=== PATIENT | female | born 1930 | race Caucasian/White ===

== ENCOUNTER 2016-07-11 12:51 | Outpatient (CLI) | payer MEDICARE, OTHER | END 2016-07-11 12:52 | disposition home or self-care (01) | DX: I48.91 Unspecified atrial fibrillation (principal); Z79.01 Long term (current) use of anticoagulants ==

== ENCOUNTER 2016-08-07 12:33 | Outpatient (CLI) | payer MEDICARE, OTHER | END 2016-08-07 12:34 | disposition home or self-care (01) | DX: I48.91 Unspecified atrial fibrillation (principal); Z79.01 Long term (current) use of anticoagulants ==

== ENCOUNTER 2016-09-09 11:22 | Outpatient (CLI) | payer MEDICARE, OTHER | END 2016-09-09 11:23 | disposition home or self-care (01) | DX: I48.91 Unspecified atrial fibrillation (principal); Z79.01 Long term (current) use of anticoagulants ==

== ENCOUNTER 2016-11-03 13:51 | Outpatient (CLI) | payer MEDICARE, OTHER | END 2016-11-03 13:52 | disposition home or self-care (01) | DX: I48.91 Unspecified atrial fibrillation (principal); Z79.01 Long term (current) use of anticoagulants ==

== ENCOUNTER 2017-01-13 11:16 | Outpatient (CLI) | payer MEDICARE, OTHER | END 2017-01-13 11:17 | disposition home or self-care (01) | LOC: LAB.F 11:16 | PROVIDERS: ATTEND Registered Nurse | DX: I48.91 Unspecified atrial fibrillation (principal) | CPT/HCPCS: 85610 ==

== ENCOUNTER 2017-02-25 10:01 | Outpatient (CLI) | payer MEDICARE, OTHER | END 2017-02-25 10:02 | disposition home or self-care (01) | LOC: LAB.F 10:01 | PROVIDERS: ATTEND Registered Nurse | DX: I48.91 Unspecified atrial fibrillation (principal); Z79.01 Long term (current) use of anticoagulants | CPT/HCPCS: 85610 ==

== ENCOUNTER 2017-04-09 15:43 | Outpatient (CLI) | payer MEDICARE, OTHER | END 2017-04-09 15:44 | disposition home or self-care (01) | LOC: LAB.R 15:43 | PROVIDERS: ATTEND Registered Nurse | DX: I48.91 Unspecified atrial fibrillation (principal); Z79.01 Long term (current) use of anticoagulants | CPT/HCPCS: 85610 ==

== ENCOUNTER 2017-06-02 11:01 | Outpatient (CLI) | payer MEDICARE, OTHER | END 2017-06-02 11:02 | disposition home or self-care (01) | LOC: LAB.F 11:01 | PROVIDERS: ATTEND Registered Nurse | DX: I48.91 Unspecified atrial fibrillation (principal); Z79.01 Long term (current) use of anticoagulants | CPT/HCPCS: 85610 ==

== ENCOUNTER 2017-06-16 15:16 | Outpatient (CLI) | payer MEDICARE, OTHER | END 2017-06-16 15:17 | disposition home or self-care (01) | LOC: LAB.F 15:16 | PROVIDERS: ATTEND Registered Nurse | DX: I48.91 Unspecified atrial fibrillation (principal); Z79.01 Long term (current) use of anticoagulants | CPT/HCPCS: 85610 ==

== ENCOUNTER 2017-07-17 13:55 | Outpatient (CLI) | payer MEDICARE, OTHER | END 2017-07-17 13:56 | disposition home or self-care (01) | LOC: DI 13:55 | PROVIDERS: ATTEND Internal Medicine Cardiovascular Disease | DX: R06.00 Dyspnea, unspecified (principal); I08.3 Combined rheumatic disorders of mitral, aortic and tricuspid valves | CPT/HCPCS: 93306 ==

== ENCOUNTER 2017-07-21 08:00 | Outpatient (CLI) | payer MEDICARE, OTHER | END 2017-07-21 08:01 | LOC: LAB.F 08:00 | PROVIDERS: ATTEND Registered Nurse | DX: I48.91 Unspecified atrial fibrillation (principal); Z79.01 Long term (current) use of anticoagulants | CPT/HCPCS: 85610 ==

== ENCOUNTER 2017-07-30 13:10 | Outpatient (CLI) | payer MEDICARE, OTHER | END 2017-07-30 13:11 | disposition home or self-care (01) | LOC: LAB.F 13:10 | PROVIDERS: ATTEND Registered Nurse | DX: I48.91 Unspecified atrial fibrillation (principal); Z79.01 Long term (current) use of anticoagulants | CPT/HCPCS: 85610 ==

== ENCOUNTER 2017-08-18 15:29 | Outpatient (CLI) | payer MEDICARE, OTHER | END 2017-08-18 15:30 | disposition home or self-care (01) | LOC: LAB.F 15:29 | PROVIDERS: ATTEND Registered Nurse | DX: I48.91 Unspecified atrial fibrillation (principal); Z79.01 Long term (current) use of anticoagulants | CPT/HCPCS: 85610 ==

== ENCOUNTER 2017-09-10 08:39 | Outpatient (CLI) | payer MEDICARE, OTHER ==
[2017-09-10] MEDS ORDERED: REGADENOSON 0.4 MG/5 ML SYRINGE IVP ONE (11:22)
[2017-09-10 12:48] VITALS: BP 124/72
--- NOTE | 2017-09-10 15:03 | CARDIAC PROCEDURE NOTE ---
DATE OF SERVICE: 09/10/2017 Physician: BHAVNA Awan PRIMARY CARE PHYSICIAN: Carl Austin MD MANUFACTURING TECHNOLOGIST: Ralph Guzman MD PROCEDURE: Pharmacologic cardiac stress test. PROCEDURE SYMPTOMS: Dyspnea on exertion and abnormal echocardiogram. CARDIAC RISK FACTORS: Include age. PREVIOUS CARDIAC PROCEDURES: Distant history of treadmill test. CLINICAL HISTORY: An 86-year-old female without known coronary artery disease. She has a pacemaker and permanent atrial fibrillation. There were no medications held. INITIAL RESTING VITAL SIGNS: BP 124/72, heart rate 105, height 66 inches, weight 140 pounds. PROCEDURE AND FINDINGS: Patient identity and date verified. Consent signed. Pharmaceutical check. Pharmacologic stress testing was performed with Lexiscan at a dose of 0.4 mg over 10 seconds. The heart rate decreased to 83 beats per minute from the infusion. Blood pressure response was normal. The patient developed no infusion related symptoms. However, once the test was completed, she reported some mild chest tightness. The resting ECG demonstrated ventricular paced rhythm. There was no noted ectopy. FINAL IMPRESSIONS 1. Nondiagnostic electrocardiogram for ischemia in the setting of vasodilator stress, due to ventricular pacing. 2. Nondiagnostic stress test for angina. 3. No ectopy. 4. Await myocardial perfusion report. TD: 09/10/2017 15:03
--- NOTE | 2017-09-10 16:56 | Nuclear Medicine Report ---
EXAM: SINGLE-ISOTOPE PHARMACOLOGICAL STRESS TEST WITH REGADENOSON. SINGLE-ISOTOPE AND ONE-DAY REST/STRESS M YOCARDIAL PERFUSION SCANS WITH TOMOGRAPHIC IMAGING, QUANTITATIVE ANALYSIS, WALL MOTION ANALYSIS AND C ALCULATION OF EJECTION FRACTION. EXAM DATE: 09/10/2017 12:36 PM. CLINICAL HISTORY: ABN ECHO. COMPARISON: None. TECHNIQUE: After the intravenous administration of 9.4 mCi of Tc-99m sestamibi, a rest myocardial perfusion scan was done with tomography. Motion correction was applied when appropriate. After an appropriate delay, pharmacological stress was performed with the infusion of 0.4 mg regadeno son per protocol. According to protocol, 39.2 mCi of Tc-99m sestamibi was injected for stress myocard ial perfusion scan. Motion correction was applied when appropriate. Gated tomographic images were obtained for wall motion analysis and computation of left ventricular e jection fraction. FINDINGS: Perfusion images: Left ventricular chamber size is normal at rest and unchanged at stress. No convincing fixed perfusion deficits. No convincing reversible perfusion deficits. Gated images: No convincing focal wall motion abnormality. The left ventricular ejection fraction is estimated at 61% (normal > 50%). IMPRESSION: 1. No convincing reversible perfusion deficits to indicate stress-induced ischemia. 2. No convincing fixed perfusion deficits. 3. Left ventricular ejection fraction of 61% (normal > 50%). 4. No focal wall motion abnormalities. [facility] Referring Provider Line: [phone] SITE ID: [id number]
== END 2017-09-10 08:40 | disposition home or self-care (01) ==
LOC: DI 08:39
PROVIDERS: ATTEND Internal Medicine Cardiovascular Disease
DX: R93.1 Abnormal findings on diagnostic imaging of heart and coronary circulation (principal); R06.00 Dyspnea, unspecified; I48.91 Unspecified atrial fibrillation; Z79.01 Long term (current) use of anticoagulants
CPT/HCPCS: 78452; 85610; 93017; A9500

== ENCOUNTER 2017-09-10 13:07 | Outpatient (CLI) | payer MEDICARE, OTHER | END 2017-09-10 13:08 | disposition home or self-care (01) | LOC: LAB.F 13:07 | PROVIDERS: ATTEND Registered Nurse | DX: I48.91 Unspecified atrial fibrillation (principal); Z79.01 Long term (current) use of anticoagulants | CPT/HCPCS: 85610 ==

== ENCOUNTER 2017-10-16 10:30 | Outpatient (CLI) | payer MEDICARE, OTHER | END 2017-10-16 10:31 | disposition home or self-care (01) | LOC: LAB.F 10:30 | PROVIDERS: ATTEND Registered Nurse | DX: I48.91 Unspecified atrial fibrillation (principal); Z79.01 Long term (current) use of anticoagulants | CPT/HCPCS: 85610 ==

== ENCOUNTER 2017-11-23 13:02 | Outpatient (CLI) | payer MEDICARE, OTHER | END 2017-11-23 13:03 | disposition home or self-care (01) | LOC: LAB.F 13:02 | PROVIDERS: ATTEND Family Medicine | DX: I48.91 Unspecified atrial fibrillation (principal); Z79.01 Long term (current) use of anticoagulants | CPT/HCPCS: 85610 ==

== ENCOUNTER 2017-11-24 08:00 | Outpatient (CLI) | payer MEDICARE, OTHER ==
[2017-11-25 11:03] LABS: BASOPHILS # (AUTO) 0.1 10^3/uL (0.0-0.1); BASOPHILS % (AUTO) 0.8 %; EOSINOPHILS # (AUTO) 0.2 10^3/uL (0.0-0.7); EOSINOPHILS % (AUTO) 3.2 %; LYMPHOCYTES # (AUTO) 1.7 10^3/uL (1.5-3.5); MEAN CORPUSCULAR HEMOGLOBIN 31.2 pg (27.0-31.0); MEAN CORPUSCULAR HGB CONC 32.5 g/dL (32.0-36.0); MEAN CORPUSCULAR VOLUME 96.2 fL (81.0-99.0); MONOCYTES # (AUTO) 0.7 10^3/uL (0.0-1.0); MONOCYTES % (AUTO) 10.3 %; NEUTROPHILS # (AUTO) 3.8 10^3/uL (1.5-6.6); NEUTROPHILS % (AUTO) 59.7 %; PLT - PLATELET COUNT 195 10^3/uL (130-450); RED BLOOD COUNT 4.47 10^6/uL (4.20-5.40); RED CELL DISTRIBUTION WIDTH 14.5 % (12.0-15.0); WHITE BLOOD COUNT 6.4 x10^3/uL (4.8-10.8)
[2017-11-25 11:47] LABS: BUN - BLOOD UREA NITROGEN 18 mg/dL (6-20); CARBON DIOXIDE - CO2 27 mmol/L (21-32); CHLORIDE 102 mmol/L (101-111); CREATININE 0.7 mg/dL (0.4-1.0); DIGOXIN 1.2 ng/mL; GFR - MDRD 79 (>89); GLUCOSE 78 mg/dL (70-100); INR 4.3 (0.8-1.2); PT - PROTHROMBIN TIME 45.5 secs (9.9-12.6); SODIUM 136 mmol/L (135-145)
== END 2017-11-24 08:01 | disposition home or self-care (01) ==
LOC: LAB.F 08:00
PROVIDERS: ATTEND Registered Nurse
DX: Z79.01 Long term (current) use of anticoagulants (principal); E78.4 Other hyperlipidemia; I50.32 Chronic diastolic (congestive) heart failure; I48.91 Unspecified atrial fibrillation; M81.0 Age-related osteoporosis without current pathological fracture
CPT/HCPCS: 36415; 80048; 80162; 82306; 85025; 85610

== ENCOUNTER 2017-12-01 10:59 | Outpatient (CLI) | payer MEDICARE, OTHER | END 2017-12-01 11:00 | disposition home or self-care (01) | LOC: LAB.F 10:59 | PROVIDERS: ATTEND Registered Nurse | DX: I48.91 Unspecified atrial fibrillation (principal); Z79.01 Long term (current) use of anticoagulants | CPT/HCPCS: 85610 ==

== ENCOUNTER 2017-12-10 12:56 | Outpatient (CLI) | payer MEDICARE, OTHER | END 2017-12-10 12:57 | disposition home or self-care (01) | LOC: LAB.F 12:56 | PROVIDERS: ATTEND Registered Nurse | DX: I48.91 Unspecified atrial fibrillation (principal); Z79.01 Long term (current) use of anticoagulants | CPT/HCPCS: 85610 ==

== ENCOUNTER 2017-12-22 10:55 | Outpatient (CLI) | payer MEDICARE, OTHER | END 2017-12-22 10:56 | disposition home or self-care (01) | LOC: LAB.F 10:55 | PROVIDERS: ATTEND Registered Nurse | DX: I48.91 Unspecified atrial fibrillation (principal); Z79.01 Long term (current) use of anticoagulants | CPT/HCPCS: 85610 ==

== ENCOUNTER 2018-01-04 08:15 | Outpatient (CLI) | payer MEDICARE, OTHER | END 2018-01-04 08:16 | disposition home or self-care (01) | LOC: LAB.F 08:15 | PROVIDERS: ATTEND Registered Nurse | DX: I48.91 Unspecified atrial fibrillation (principal); Z79.01 Long term (current) use of anticoagulants | CPT/HCPCS: 85610 ==

== ENCOUNTER 2018-02-01 11:22 | Outpatient (CLI) | payer MEDICARE, OTHER | END 2018-02-01 11:23 | disposition home or self-care (01) | LOC: LAB.F 11:22 | PROVIDERS: ATTEND Registered Nurse | DX: I48.91 Unspecified atrial fibrillation (principal); Z79.01 Long term (current) use of anticoagulants | CPT/HCPCS: 85610 ==

== ENCOUNTER 2018-02-22 10:17 | Outpatient (CLI) | payer MEDICARE, OTHER | END 2018-02-22 10:18 | disposition home or self-care (01) | LOC: LAB.F 10:17 | PROVIDERS: ATTEND Registered Nurse | DX: I48.91 Unspecified atrial fibrillation (principal); Z79.01 Long term (current) use of anticoagulants | CPT/HCPCS: 85610 ==

== ENCOUNTER 2018-03-23 11:27 | Outpatient (CLI) | payer MEDICARE, OTHER | END 2018-03-23 11:28 | disposition home or self-care (01) | LOC: LAB.F 11:27 | PROVIDERS: ATTEND Registered Nurse | DX: I48.91 Unspecified atrial fibrillation (principal); Z79.01 Long term (current) use of anticoagulants | CPT/HCPCS: 85610 ==

== ENCOUNTER 2018-04-20 11:07 | Outpatient (CLI) | payer MEDICARE, OTHER | END 2018-04-20 11:08 | disposition home or self-care (01) | LOC: LAB.F 11:07 | PROVIDERS: ATTEND Registered Nurse | DX: I48.91 Unspecified atrial fibrillation (principal); Z79.01 Long term (current) use of anticoagulants | CPT/HCPCS: 85610 ==

== ENCOUNTER 2018-05-18 11:19 | Outpatient (CLI) | payer MEDICARE, OTHER | END 2018-05-18 11:20 | disposition home or self-care (01) | LOC: LAB.F 11:19 | PROVIDERS: ATTEND Registered Nurse | DX: I48.91 Unspecified atrial fibrillation (principal); Z79.01 Long term (current) use of anticoagulants | CPT/HCPCS: 85610 ==

== ENCOUNTER 2018-06-17 13:04 | Outpatient (CLI) | payer MEDICARE, OTHER | END 2018-06-17 13:05 | disposition home or self-care (01) | LOC: LAB.F 13:04 | PROVIDERS: ATTEND Registered Nurse | DX: I48.91 Unspecified atrial fibrillation (principal); Z79.01 Long term (current) use of anticoagulants | CPT/HCPCS: 85610 ==

== ENCOUNTER 2018-07-23 11:45 | Outpatient (CLI) | payer MEDICARE, OTHER | END 2018-07-23 11:46 | disposition home or self-care (01) | LOC: LAB.F 11:45 | PROVIDERS: ATTEND Family Medicine | DX: I48.91 Unspecified atrial fibrillation (principal); Z79.01 Long term (current) use of anticoagulants | CPT/HCPCS: 85610 ==

== ENCOUNTER 2018-09-16 10:01 | Outpatient (CLI) | payer MEDICARE, OTHER | END 2018-09-16 10:02 | disposition home or self-care (01) | LOC: LAB.F 10:01 | PROVIDERS: ATTEND Registered Nurse | DX: I48.91 Unspecified atrial fibrillation (principal); Z79.01 Long term (current) use of anticoagulants | CPT/HCPCS: 85610 ==

== ENCOUNTER 2018-09-24 14:12 | Outpatient (CLI) | payer MEDICARE, OTHER ==
--- NOTE | 2018-09-27 13:20 | DEXA Report ---
Reason: OSTEOPOROSIS Procedure Date: 09/24/2018 Accession Number: [id number] / [id number] Procedure: DEX - Dexa Spine and/or Hip CPT Code: FULL RESULT: EXAM: Dexa Spine and/or Hip DATE: 09/24/2018 2:45 PM CLINICAL HISTORY: OSTEOPOROSIS TECHNIQUE: Dual energy x-ray absorptiometry (DXA) was performed on a Modria System. Regions measured are the AP Spine, femoral neck, and if needed forearm. COMPARISON: None. In accordance with the International Society for Clinical Densitometry (ISCD) guidelines, data from previous exams may be reanalyzed using current recommendations and techniques. This is done to allow a more accurate basis for comparison with the current study. FINDINGS: The data for the lumbar spine is as follows: BMD (g/cm/cm) T-SCORE Z-SCORE REGION L1 0.849 -2.3 -0.3 L2 0.886 -2.6 -0.6 L3 0.931 -2.2 -0.2 L4 0.892 -2.6 -0.5 TOTAL 0.889 -2.4 -0.4 NOTE: All evaluable vertebrae are used for classification The data for the hip is as follows: BMD (g/cm/cm) T-SCORE Z-SCORE REGION Neck 0.675 -2.6 0.0 TOTAL 0.695 -2.5 0.0 NOTE: The femoral neck or total proximal femur, whichever is lowest, is used for classification. IMPRESSION: THE WHO CLASSIFICATION BASED ON THE INTERNATIONAL REFERENCE STANDARD IS OSTEOPOROSIS. THE FRACTURE RISK IS HIGH. RECOMMENDATION: Patients with diagnosis of osteoporosis or osteopenia should have regular bone mineral density assessment. For those eligible for Medicare, routine testing is allowed once every 2 years. Testing frequency can be increased for patients who have rapidly progressing disease or for those who are receiving medical therapy to restore bone mass. COMMENT: World Health Organization (WHO) definitions for osteoporosis and osteopenia: NORMAL BMD: T-score at -1.0 or higher, fracture risk is low OSTEOPENIA BMD: T-score between -1.0 and -2.5, fracture risk is increased. OSTEOPOROSIS BMD: T-score at -2.5 or lower, fracture risk is high. National Osteoporosis Foundation recommends: 1. Obtain adequate dietary calcium (at least 1200 mg per day) and vitamin D (400-800 international units per day). 2. Participate, as appropriate, in regular weightbearing and muscle-strengthening exercise. 3. Avoid tobacco use and reduce alcohol and caffeine intake. 4. For more detailed information see the website at www.NOF.org.
== END 2018-09-24 14:13 | disposition home or self-care (01) ==
LOC: DI 14:12
PROVIDERS: ATTEND Family Medicine
DX: M81.0 Age-related osteoporosis without current pathological fracture (principal)
CPT/HCPCS: 77080

== ENCOUNTER 2018-10-12 08:00 | Outpatient (CLI) | payer MEDICARE, OTHER | END 2018-10-12 23:59 | disposition home or self-care (01) | LOC: LAB.F 08:00 | PROVIDERS: ATTEND Registered Nurse | DX: I48.91 Unspecified atrial fibrillation (principal); Z79.01 Long term (current) use of anticoagulants | CPT/HCPCS: 85610 ==

== ENCOUNTER 2018-11-19 14:13 | Outpatient (CLI) | payer MEDICARE, OTHER | END 2018-11-19 14:14 | disposition home or self-care (01) | LOC: LAB.F 14:13 | PROVIDERS: ATTEND Registered Nurse | DX: I48.91 Unspecified atrial fibrillation (principal); Z79.01 Long term (current) use of anticoagulants | CPT/HCPCS: 85610 ==

== ENCOUNTER 2018-12-22 12:20 | Outpatient (CLI) | payer MEDICARE, OTHER | END 2018-12-22 12:21 | disposition home or self-care (01) | LOC: LAB.S 12:20 | PROVIDERS: ATTEND Registered Nurse | DX: I48.91 Unspecified atrial fibrillation (principal); Z79.01 Long term (current) use of anticoagulants | CPT/HCPCS: 85610 ==

== ENCOUNTER 2019-01-17 | Outpatient (CLI) | payer MEDICARE, OTHER | END 2019-01-17 13:04 | disposition home or self-care (01) ==

== ENCOUNTER 2019-02-07 09:33 | Emergency (ER) | payer MEDICARE, OTHER ==
[2019-02-07 09:49] VITALS: BP 140/80
--- NOTE | 2019-02-07 09:49 | ED Physician Documentation ---
PD HPI OPHTHO - Stated complaint Stated Complaint: VISION CHG RT EYE - Chief complaint Chief Complaint: Heent - History obtained from History obtained from: Patient - History of Present Illness Timing - onset: How many days ago (2) Timing - duration: Days (2) Timing - details: Gradual onset, Still present (increased blurring vision for 2- 3 days, with last night having some medial canthal discharge. No loss of vision per se. Not light sensitive.) Location: Right. No: Both Quality / character: Aching. No: Burning Associated symptoms: Discharge (mild medial canthus since last night.). No: Redness, FB sensation, Photophobia, Double vision Contributing factors: No: Exposed to conjunctivitis, FB, Wears contacts Similar symptoms before: Has not had sx before Recently seen: Not recently seen Review of Systems Constitutional: denies: Fever, Chills, Myalgias Eyes: reports: Decreased vision, Discharge (mild since last night, medial r ight.). denies: Loss of vision, Photophobia Ears: denies: Ear pain, Foreign body Nose: denies: Rhinorrhea / runny nose, Congestion, Sinus pressure / pain Throat: denies: Sore throat Cardiac: denies: Chest pain / pressure Respiratory: denies: Cough GI: denies: Abdominal Pain, Nausea, Vomiting, Diarrhea Skin: denies: Rash, Lesions Neurologic: denies: Generalized weakness, Focal weakness, Numbness PD PAST MEDICAL HISTORY - Past Medical History Cardiovascular: Deep vein thrombosis, Atrial fibrillation Respiratory: Sleep apnea, CPAP use HEENT: Glaucoma - Past Surgical History Cardiovascular: Pacemaker, Other HEENT: Cataracts, Tonsil/Adenoidectomy - Present Medications Home Medications: Ambulatory Orders Medication Instructions Recorded Confirmed Digoxin 250 mcg PO DAILY 02/07/19 02/07/19 Furosemide [Lasix] 20 mg PO DAILY 02/07/19 02/07/19 Multivitamin [Multivitamins] 1 tab PO DAILY 02/07/19 02/07/19 Spironolactone 25 mg PO DAILY 02/07/19 02/07/19 Warfarin [Coumadin] 3 mg PO 02/07/19 Zolpidem Tartrate [Ambien] 10 mg PO 02/07/19 - Allergies Allergies/Adverse Reactions: Allergies Allergy/AdvReac Type Severity Reaction Status Date / Time cefazolin [From [facility]] Allergy Rash Verified 02/07/19 09:42 PD ED PE NORMAL - Vitals Vital signs reviewed: Yes - General General: Alert and oriented X 3, No acute distress, Well developed/nourished - HEENT HEENT: PERRL (not light sensitive. 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 No: Fluorescein uptake Results - Vitals Vitals: Vital Signs - 24 hr 02/07/19 09:40 Temperature 36.5 C Heart Rate 92 Respiratory 18 Rate Blood Pressure 140/80 H O2 Saturation 99 Oxygen O2 Source Room air PD MEDICAL DECISION MAKING - ED course Complexity details: considered differential, d/w speech correction consultant (Dr. Ruggiero's office and relayed information. He will see patient at 3 pm today. ) Departure - Departure Disposition: 01 Home, Self Care Clinical Impression: Blurred vision, right eye Conjunctivitis Qualifiers: Conjunctivitis type: acute Acute conjunctivitis type: unspecified Laterality: right Qualified Code(s): H10.31 - Unspecified acute conjunctivitis, right eye Condition: Stable Record reviewed to determine appropriate education?: Yes Follow-Up: Carl Austin MD [Primary Care Provider] - Raad Ruggiero MD [Provider Admit Priv/Credential] - Comments: Use the erythromycin 3 or 4 times a day for now. Follow-up with Dr. Ruggiero today in his office at 3:00 as planned. Return or go to his office sooner if worsening symptoms. Discharge Date/Time: 02/07/19 11:25
[2019-02-07] MEDS ORDERED: ERYTHROMYCIN OPHTH OINT 1 GM TUBE RIGHTEYE STA (10:54)
== END 2019-02-07 11:25 | disposition home or self-care (01) ==
LOC: ED 09:33
DX: H10.31 Unspecified acute conjunctivitis, right eye (principal); H53.8 Other visual disturbances; Z86.718 Personal history of other venous thrombosis and embolism; Z79.01 Long term (current) use of anticoagulants
CPT/HCPCS: 99203; 99282; 99284; G0463; J3490; 99212

== ENCOUNTER 2019-02-07 13:02 | Outpatient (CLI) | payer MEDICARE, OTHER ==
--- NOTE | 2019-02-07 17:08 | SLEEP CARE CONSULTATION ---
Information from patient questionnaire entered by Fany Camejo. I have reviewed and concur with the information entered by Fany Camejo. This document represents the service I personally performed and the decisions made by me, Russell Du MD, [facility]. History of Present Illness Reason for Visit: New patient Chief Complaint: reports: Snoring, Observed pauses in breathing Duration of Symptoms: MANY YEARS Usual bedtime: 11:30PM Time it takes to fall asleep: 10 MINUTES Snores at night: Yes (WHEN NOT USING CPAP) Observed to quit breathing while asleep: No Sleeps alone due to snoring: No Number of times waking at night: 0 Recalls having dreams: Yes (SOMETIMES) Usually gets out of bed at: 7:30-8:00 AM Feels refreshed in the morning: Yes Morning headache: No Sleepy or fatigued during the day: Yes Ever fallen asleep while driving: No Takes day naps: No Dreams during day naps: No Prior sleep studies: Yes (20 YEARS AGO, [place], [place]) Additional HPI information: I had the pleasure of seeing Ms. Kumar today regarding obstructive sleep apnea- hypopnea. As you know, she is an 88 year old lady who was diagnosed with the sleep-disordered breathing at [facility] about 20 years ago. The report is not available. She was prescribed a CPAP device which she has been using regularly since. She does not know what pressure is set on the machine. There is no compliance/efficacy report to review either. She wears ResMed AirFit P-10 nasal pillows. She gets his supplies from [facility]. She finds the treatment very beneficial. - Parasomnia Symptoms Ever been unable to move upon waking from sleep: No Walks in sleep: No Talks in sleep: No Ever acted out dreams in sleep: No Ever felt weak in the knees when startled or emotional: No Bothered by creepy, crawly, restless sensations in legs: No Problems with memory or concentration: Yes Subjective Initial [place] Sleepiness Scale score: 4 Past Medical History Past Medical History: reports: Arrythmia, Emphysema Social History The patient's occupation is RETIRED. Patient is and lives in [place]. Have you smoked in the past 12 months: No Alcohol use: No Caffeine use: Yes Caffeine amount and frequency: 1 CUP/DAY Family History Family history of sleep disordered breathing: No Allergies and Home Medications Drug allergies reviewed: Yes Home medication list reviewed: Yes Review of Systems Weight loss over past 5 years: 25 Cardiovascular: reports: irregular heart rate or pulse, leg or foot swelling Respiratory: denies: shortness of breath, wheeze, sputum production, chronic cough, other Gastrointestinal: denies: heartburn, difficulty swallowing, nausea, vomitting, diarrhea, abdominal pain, other Urinary: reports: frequency (AFTER TAKING FUROSIMIDE) Neurological: denies: headaches, seizure, head trauma, disorientation, speech dysfunction, gait or balance problems, fainting or unconsciousness, other Psychiatric: denies: Attention Deficit Hyperactivity, anxiety, depression, mood disorder, claustrophobia, other Ear/Nose/Throat: reports: tonsillectomy, wisdom teeth removed Endocrine: denies: thyroid disease, history of goiter, sluggishness, too hot or cold, excessive thirst, increased appetite, increased urination, unexplained weakness, other Musculoskeletal: reports: back pain Immunologic: reports: itching, other (EXTREMELY DRY SKIN) Physical Exam Vital signs obtained and entered by: Dr. Du Blood Pressure: 100/50 Heart Rate: 87 O2 Saturation: 97 Height: 5 ft 1 in Weight (kg): 136 lb Body Mass Index: 25.7 BMI Classification: Overweight Mood/affect: normal HEENT: No craniofacial malformation Nostrils: patent to airflow Turbinates: normal Septum: midline Mouth and throat: normal Soft palate: long Hard palate: normal Uvula: normal Uvula visualization: 50% Mallampati Class II Tongue: normal in size Tonsils: absent bilaterally Chin and jaw: normal size and position Neck: normal w/o lymphadenopathy or thyromegaly Heart: regular rate and rhythm Lungs: clear bilaterally Abdomen: soft, non-tender Extremities: no edema or clubbing Neurologic: intact, no focal deficits Impression and Plan IMPRESSION: 1. Obstructive Sleep Apnea-Hypopnea Syndrome, of unknown severity. According to her, she has had good treatment compliance. The effectiveness of the treatment is also unknown because her machine cannot produce a compliance/efficacy report. The patient experiences improvement on the treatment. Because the CPAP is now older than the useful life of 5 years, I will order the patient a new one and set it similar to her current machine. Plan: 1. Prescription made for an autoCPAP, heated humidifier, and related supplies. 2. Return for follow up after one month on the new machine. I spent 100% of this 15 minute visit face to face with the patient with greater than 50% of this was spent time counseling the patient and coordination of care.
[2019-02-07 17:09] VITALS: BP 100/50
== END 2019-02-07 13:03 | disposition home or self-care (01) ==
LOC: SC 13:02
PROVIDERS: ATTEND Internal Medicine Pulmonary Disease
DX: G47.33 Obstructive sleep apnea (adult) (pediatric) (principal)
CPT/HCPCS: 99203; G0463; 99212

== ENCOUNTER 2019-03-09 11:25 | Outpatient (CLI) | payer MEDICARE, OTHER | END 2019-03-09 11:26 | disposition home or self-care (01) | LOC: LAB.S 11:25 | PROVIDERS: ATTEND Registered Nurse | DX: I48.91 Unspecified atrial fibrillation (principal); Z79.01 Long term (current) use of anticoagulants | CPT/HCPCS: 85610 ==

== ENCOUNTER 2019-04-12 11:07 | Outpatient (CLI) | payer MEDICARE, OTHER | END 2019-04-12 11:08 | disposition home or self-care (01) | LOC: LAB.S 11:07 | PROVIDERS: ATTEND Registered Nurse | DX: I48.91 Unspecified atrial fibrillation (principal); Z79.01 Long term (current) use of anticoagulants | CPT/HCPCS: 85610 ==

== ENCOUNTER 2019-05-17 11:01 | Outpatient (CLI) | payer MEDICARE, OTHER | END 2019-05-17 23:59 | LOC: LAB.S 11:01 | PROVIDERS: ATTEND Registered Nurse | DX: I48.91 Unspecified atrial fibrillation (principal); Z79.01 Long term (current) use of anticoagulants | CPT/HCPCS: 85610 ==

== ENCOUNTER 2019-07-11 13:04 | Outpatient (CLI) | payer MEDICARE, OTHER ==
--- NOTE | 2019-07-11 13:49 | SLEEP CARE CONSULTATION ---
Information from patient questionnaire entered by Fany Camejo. I have reviewed and concur with the information entered by Fany Camejo. This document represents the service I personally performed and the decisions made by me, Kimberley Andrade, RN, MSN, CERTIFIED REGISTERED NURSE PRACTITIONER. History of Present Illness Previous diagnosis: Severe Reason for follow up: first compliance (does not like the presentation of data on side of machine as harder to see where she places device.) Equipment type: CPAP Equipment obtained from: [facility] Mask style: Nasal pillows Mask brand: Resmed Backup mask available: Yes (old mask) Last cushion change: none since set up Prior sleep studies: Yes CPAP Compliance Data - Data Reviewed with Patient Average duration of nightly device use: 7H 58M Compliance rate %: 100 Current pressure setting (cmH2O): 8-15 Average residual AHI: 8.7 (Patient feels she needs more air at times. ) Central apnea: 7.9 Obstructive apnea: 0.2 Hypopnea: 0.3 Subjective Patient concerns: reports: mask discomfort (headgear too tight ), other (irritated nose most of time). denies: aerophagia, air blowing in eyes, mask leak noise, condensation in mask/hose, nasal congestion, dry mouth, nose, throat, epistaxis Observed to snore while using device: No Current pressure setting perceived as: not enought sometimes On therapy, patient: reports: sleeping better (cant sleep without CPAP. ), awakening more refreshed, being more awake and alert during the day, more rested overall. denies: drowsiness while driving Initial [place] Sleepiness Scale score: 4 Current [place] Sleepiness Scale score: 2 Review of Systems Review of systems same as previous: Yes Physical Exam Blood Pressure: 110/70 Cuff size: regular Heart Rate: 88 O2 Saturation: 92 Height: 5 ft 1 in Weight: 138 lb 3.2 oz Body Mass Index: 26.1 BMI Classification: Overweight Impression and Plan 1. Obstructive Sleep Apnea-Hypopnea Syndrome, severe, with good treatment compliance and elevated residual apnea. On CPAP therapy, the patient has better sleep quality and is more rested overall. For her mask headgear questions, I looked online and showed her that there is a regular and for her style. She is to contact her DME to get a larger mask headgear for comfort. For elevated residual AHI, I will change her autoCPAP pressure to [id number]. Patient to contact me if uncomfortable. If her nose continued to be irritated with new nasal cushions and changing more frequent, she is advise to consider new mask mask style as shown. Supply questions answered. A supply replacement schedule given. Patient's apnea severity and rationale for treatment to reduce apnea, improve sleep quality and reduce cardiovascular and cerebrovascular events was reviewed. I also reviewed the benefit of consistent device use of CPAP for arrhythmia. * * Change CPAP pressure to 12-16 cmH2O * Implement methods to reduce mask discomfort * Notify me if snoring with mask or feeling that the pressure is too much or too little * Attempt to lose weight * Call this office if any problems using CPAP * Return for follow up in 2 months , or sooner if concerns arise Time Spent with Patient (minutes): 35 I spent 100% of this visit face to face with the patient with greater than 50% of this was spent time counseling the patient and coordination of care.
[2019-07-11 17:37] VITALS: BP 110/70
== END 2019-07-11 13:05 | disposition home or self-care (01) ==
LOC: SC 13:04
PROVIDERS: ATTEND Nurse Practitioner Family
DX: G47.33 Obstructive sleep apnea (adult) (pediatric) (principal)
CPT/HCPCS: 99214; G0463; 99212

== ENCOUNTER 2019-07-28 12:58 | Outpatient (CLI) | payer MEDICARE, OTHER | END 2019-07-28 12:59 | disposition home or self-care (01) | LOC: LAB.S 12:58 | PROVIDERS: ATTEND Registered Nurse | DX: I48.91 Unspecified atrial fibrillation (principal); Z79.01 Long term (current) use of anticoagulants | CPT/HCPCS: 85610 ==

== ENCOUNTER 2019-09-06 08:36 | Outpatient (CLI) | payer MEDICARE, OTHER | END 2019-09-06 08:37 | disposition home or self-care (01) | LOC: LAB.S 08:36 | PROVIDERS: ATTEND Registered Nurse | DX: I48.91 Unspecified atrial fibrillation (principal); Z79.01 Long term (current) use of anticoagulants | CPT/HCPCS: 85610 ==